=== PATIENT | female | born 1970 | race African-American/Black ===

== ENCOUNTER → 2017-07-28 | Day surgery (SDC) | payer BC ==
[~2017-07-28] MED LIST: BUPIVACAINE HCL 0.5% INJ 30 ML VIAL INJ ONE; CEFAZOLIN SOD 1 GM VIAL ONE; DAILY VALUE1 EACH PO; DEXAMETHASONE SOD PHOS INJ 4 MG/ML VIAL ONE; FENTANYL CITRATE/PF 100MCG/2 ML INJ ONE; LIDOCAINE HCL 2% LOCAL INJ 5 ML SDV VIAL INJ ONE; MONTELUKAST SOD10 MG PO; ONDANSETRON HCL INJ 2 MG/ML VIAL ONE; PROPOFOL IV EMULSION 10 MG/ML 20 ML VIAL ONE; SEVOFLURANE INHAL SOLN 250 ML PEN BTL ONE; ZYRTEC-D TABLE1 EACH PO
--- NOTE | 2017-07-28 09:57 | Operative Report ---
DATE OF PROCEDURE: July 28, 2017 PREOPERATIVE DIAGNOSES 1. Right plantar fasciitis. 2. Right heel spur. POSTOPERATIVE DIAGNOSES 1. Right plantar fasciitis. 2. Right heel spur. PLANNED PROCEDURE: Right plantar fasciotomy with excision of heel spur. EDUCATIONAL TECHNOLOGY SPECIALIST: Dr. Justus DPM ANESTHESIA: General with a postoperative block consisting of 10 mL of 0.5% Marcaine plain mixed with 1 mL of dexamethasone phosphate. HEMOSTASIS: Pneumatic ankle tourniquet set at 250 mmHg for a total time of approximately 15 minutes. MATERIALS: One size 7 TLS drain, 3-0 Vicryl, 4-0 Prolene. ESTIMATED BLOOD LOSS: Less than 10 mL. PATHOLOGY: None. PROCEDURE NOTE: The patient was seen in the preoperative waiting room where the correct procedure and site were identified. The patient was brought to the operating room and placed on the operating table in the supine position. General anesthesia was initiated at this time. A well-padded pneumatic tourniquet was placed about the patient's right ankle. The right foot, ankle, and leg were then scrubbed, prepped and draped in the usual aseptic manner. The right foot, ankle, and leg were then exsanguinated with an Esmarch bandage, and the pneumatic ankle tourniquet was inflated to 250 mmHg for a total time of approximately 15 minutes. Attention was directed to the medial plantar aspect of the patient's right heel where a 4-cm linear incision was made. The incision was carried through subcutaneous tissues, them from deeper underlying structures. All vital neurovascular structures were identified, retracted dorsally and plantarly, and all bleeders were cauterized or ligated as deemed necessary. Next, utilizing a curved Metzenbaum scissors, the dorsal and plantar aspect of the plantar fascia was identified and the plantar fascia was incised approximately one-third to one-half of width. The dissection was carried down to the level of the heel spur which was noted. The heel spur was noted to be minimal and was rasped to anatomic alignment and this was confirmed via intraoperative fluoroscopy. The wound was then flushed with copious amounts of sterile saline. Next, per hr administrator protocol, one size 7 TLS drain was placed. Deep were reapproximated with 3-0 Vicryl, subcutaneous tissue with 3-0 Vicryl, and the skin was closed using a running interlocking stitch with 4-0 Prolene. The patient tolerated the procedure and anesthesia well. Patient was transferred to the postoperative recovery unit with vital signs stable and vascular status intact. The patient was monitored there for a short period time before being sent home with the following written and oral instructions 1. Keep the dressing clean, dry and intact. 2. The patient is to remain nonweightbearing in a postop shoe and to avoid any ambulation until being seen in the office. 3. The patient was given the office number and instructed to contact us if any problems should arise. Job#: [id number]
== END | disposition home or self-care (01) ==
LOC: OR 07:40
PROVIDERS: ATTEND Podiatrist Foot & Ankle Surgery
DX: M77.31 Calcaneal spur, right foot (principal); M72.2 Plantar fascial fibromatosis; T78.40XA Allergy, unspecified, initial encounter; X58.XXXA Exposure to other specified factors, initial encounter
CPT/HCPCS: 28119; J0690; J1100; J2001; J2405